=== PATIENT | female | born 1990 | race Caucasian/White ===

== ENCOUNTER 2017-10-18 12:55 | Emergency (ER) | payer OTHER ==
[~2017-10-18] VITALS: Ht 177.8 cm; Wt 86.2 kg
[~2017-10-18 12:55] MED LIST: AMOXIL500 MG PO; IBU800 MG PO
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
[2017-10-18 17:22] VITALS: BP 112/62
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
[2017-10-18] MEDS ORDERED: CYCLOBENZAPRINE10 M1 PO (18:00)
[2017-10-18] MEDS ORDERED: PERCOCET 5-3251 EACH PO (18:00)
[2017-10-18] MEDS ORDERED: IBUPROFEN600 M1 PO (18:00)
== END 2017-10-18 18:08 ==
LOC: ERH 12:55
DX: R07.89 Other chest pain (principal); R91.1 Solitary pulmonary nodule
CPT/HCPCS: 81025